=== PATIENT | female | born 1985 | race Caucasian/White ===

== ENCOUNTER 2024-07-01 13:23 | Outpatient (AMB) | payer OTHER, SELFPAY ==
--- NOTE | 2024-07-01 13:25 | A.OFFPC_ITS ---
Vital Signs 07/01/24 13:46 Height 5 ft 3.98 in Weight 154 lb 2 oz BMI 26.5 BP 112/78 Blood Pressure Location Lt brachial Position Sitting Respiration 12 Pulse 60 Pulse Source Pulse Oximeter Pulse Oximetry (%) 99 Oxygen Delivery Method Room Air Intake Visit Reasons: est care Intake Note: New patient visit Professor Of Education Required: No Allergies Sulfa (Sulfonamide Antibiotics) Allergy (Unknown, Verified 07/01/24 13:32) Hives Tobacco use date assessed: 07/01/24 Dental Screening Dental Screen Date: 07/01/24 Did you have a dental visit in the last 12 months?: Yes Did you have a dental problem in the last 6 months where you did not have access to dental care?: No Was dental information given to patient?: Patient has dentist HPI HPI Comments History of Present Illness Details 38 year old female with a past medical h istory of anemia, anxiety, food allergies, Raynauds presenting for follow up In april sliced her right pointer finger on a can top. Wants to have it looked at. She is feeling much better than at her previous visit. 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 ROS CONSTITUTIONAL: Denies weight loss, fever and chills. HEENT: Denies changes in vision and hearing. RESPIRATORY: Denies SOB and cough. CV: Denies palpitations and CP GI: Denies abdominal pain, nausea, vomiting and diarrhea. : Denies dysuria and urinary frequency. MSK: Denies new myalgia and joint pain. SKIN: Denies rash and pruritus. NEUROLOGICAL: Denies headache PSYCHIATRIC: Denies recent changes in mood. PHYSICAL EXAM: GENERAL: Alert and oriented x 3. NAD EYES: EOMI. Anicteric. HENT: Moist mucous membranes. No scleral icterus. No cervical lymphadenopathy. LUNGS: Clear to auscultation bilaterally. CARDIOVASCULAR: Regular rate and rhythm. No murmur. No JVD. ABDOMEN: Soft, non-tender +bs EXTREMITIES: No edema. Non-tender. SKIN: Right second pointer close to full healing. Mobile NEUROLOGIC: No focal neurological deficits. CN II-XII grossly intact PSYCHIATRIC: Cooperative. Appropriate mood and affect [facility] Medical History (Updated 07/04/24 @ 12:31 by Fawn Jones MD) Durga disease History of PCOS Food sensitivity with gastrointestinal symptoms Palpitations Diarrhea Anxiety Anemia Family History (Updated 07/01/24 @ 14:34 by Stephanie Barraza CMA) Paternal Grandfather Cancer Other Asthma Social History (Updated 07/01/24 @ 14:34 by Stephanie Barraza CMA) Housing: House Patient Tobacco Use Status: Never used Tobacco e-Cigarette/Vaping Use: Never Used Second Hand Smoke Exposure: No Use of substances other than those prescribed or required for medical reasons: No service: No Current occupational status: employed 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 1. Little interest or pleasure in doing things: not at all 2. Feeling down, depressed, or hopeless: not at all 3. Trouble falling or staying asleep, or sleeping too much: several days 4. Feeling tired or having little energy: not at all 5. Poor appetite or overeating: not at all 6. Feeling bad about yourself - or that you are a failure or have let yourself or your family down: not at all 7. Trouble concentrating on things, such as reading the newspaper or watching television: not at all 8. Moving or speaking so slowly that other people could have noticed. Or the opposite - being so fidgety or restless that you have been moving around a lot more than usual: not at all 9. Thoughts that you would be better off or of hurting yourself in some way: not at all Total score: 1 Depression Screening Interpretation: Negative (neg) Depression Screening Done: Yes 39234 - PHQ-9 Billing: Yes Source: Developed by Drs. Dean Tyler, Marjorie Graf, Marcell Chiang and colleagues, with an educational linda from [employer]. Thrive Questionnaire Date Thrive assessed: 07/01/24 I am a: Patient What is your living situation today?: I have a steady place to live Within the past 12 months, did the food you bought not last and you didn't have the money to get more?: Never true Within the past 12 months, did you worry whether your food would run out before you got money to buy more?: Never true Do you have trouble paying for medicines?: No Do you have trouble getting transportation to medical appointments?: No Do you have trouble paying your heating and electricity bill?: No Do you have trouble taking care of your child, family member or friend?: No Do you have trouble with day-to-day activities such as bathing, preparing meals, shopping, managing finances, etc.?: No Are you currently unemployed and looking for a job?: No Are you interested in more education?: No Please select the resources that you would like help with: None Currently or been in a relationship where the following occur: No concerns reported THRIVE Score: 0 AUDIT C Alcohol Use Questionnaire (AUDIT-C) 1. How often do you have a drink containing alcohol?: Monthly or less 2. How many drinks containing alcohol do you have on a typical day when you are drinking?: 1 or 2 3. How often do you have six or more drinks on one occasion?: Never Total Score: 1 NAZIA-7 AMB Questionnaire NAZIA-7 Date NAZIA - 7 assessed: 07/01/24 Feeling nervous, anxious, or on edge: 0 = Not at all Not being able to stop or control worryin = Not at all Worrying too much about different things: 0 = Not at all Trouble relaxin = Not at all Being so restless that it is hard to sit still: 0 = Not at all Becoming easily annoyed or irritable: 0 = Not at all Feeling afraid as if something awful might happen: 0 = Not at all Total NAZIA-7 score (0-4 normal; 5-9 mild; 10-14 moderate; 15-21 severe): 0 Source: Developed by Drs. Dean Tyler, Marjorie Graf, Marcell Chiang and colleagues, with an educational linda from [employer]. NAZIA-7 Assessment Billing NAZIA-7 Assessment Tool: NAZIA-7 Assessment 40020 Physical exam (Primary Care) Vital Signs: Last Vital Signs Pulse 60 07/01/24 13:46 Resp 12 07/01/24 13:46 BP 112/78 07/01/24 13:46 Pulse Ox 99 07/01/24 13:46 Oxygen Delivery Method Room Air 07/01/24 13:46 BMI result Body Mass Index 26.5 Tobacco/Smoking Status: Tobacco use Status Tobacco use date assessed 07/01/24 07/01/24 13:52 Patient Tobacco Use Status Never used Tobacco 07/01/24 13:52 e-Cigarette/Vaping Use Never Used 07/01/24 13:52 PHQ-9: PHQ-9 Score PHQ-9: Total score 1 07/04/24 12:12 Depression Screening Interpretation: Negative (neg) Thrive Assessment: Date of Thrive Assessment Date Thrive assessed 07/01/24 07/01/24 14:35 Currently or been in a relationship where the following occur: No concerns reported Coding Level of Care Code Est Pt Level 4 (86147) Diagnoses Anxiety F41.9 Food sensitivity with gastrointestinal symptoms T78.1XXA Additional Codes NAZIA-7 Assessment Billing - NAZIA-7 Assessment Tool: NAZIA-7 Assessment 32943 ([id number]) Assessment & Plan Assessment & Plan (1) Anxiety: Code(s): F41.9 - Anxiety disorder, unspecified Category: Medical Plan: well controlled at present. Using ashwagandha (2) Food sensitivity with gastrointestinal symptoms: Code(s): T78.1XXA - Other adverse food reactions, not elsewhere classified, initial encounter Category: Medical Plan: Doing much better than previously. Continue watching inflammatory foods/triggers
[2024-07-01 13:46] VITALS: BP 112/78; PULSE 60; RESP 12; O2SAT 99; BMI 26.5
== END 2024-07-01 14:01 | disposition home or self-care (01) ==
LOC: HO.HMCFM 13:24
PROVIDERS: Visit Provider Internal Medicine
DX: F41.9 Anxiety disorder, unspecified (principal); T78.1XXA Other adverse food reactions, not elsewhere classified, initial encounter

== ENCOUNTER → 2024-07-01 13:23 | Outpatient (BNVA) | payer OTHER, SELFPAY | PROVIDERS: Visit Provider Internal Medicine | DX: F41.9 Anxiety disorder, unspecified (principal); T78.1XXA Other adverse food reactions, not elsewhere classified, initial encounter | CPT/HCPCS: 96127 ==

== ENCOUNTER 2025-04-28 14:18 | Outpatient (AMB) | payer OTHER, SELFPAY ==
--- NOTE | 2025-04-28 14:19 | MHC.PC.OV ---
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 ROS CONSTITUTIONAL: Denies weight loss, fever and chills. HEENT: Denies changes in vision and hearing. RESPIRATORY: Denies SOB and cough. CV: Denies palpitations and CP GI: Denies abdominal pain, nausea, vomiting and diarrhea. : Denies dysuria and urinary frequency. MSK: Denies new myalgia and joint pain. SKIN: Denies rash and pruritus. NEUROLOGICAL: Denies headache PSYCHIATRIC: Denies recent changes in mood. PHYSICAL EXAM: GENERAL: Alert and oriented x 3. NAD EYES: EOMI. Anicteric. HENT: Moist mucous membranes. No scleral icterus. No cervical lymphadenopathy. LUNGS: Clear to auscultation bilaterally. CARDIOVASCULAR: Regular rate and rhythm. No murmur. No JVD. ABDOMEN: Soft, non-tender +bs EXTREMITIES: No edema. Non-tender. SKIN: Right second pointer close to full healing. Mobile NEUROLOGIC: No focal neurological deficits. CN II-XII grossly intact PSYCHIATRIC: Cooperative. 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 1. Little interest or pleasure in doing things: not at all 2. Feeling down, depressed, or hopeless: not at all 3. Trouble falling or staying asleep, or sleeping too much: not at all 4. Feeling tired or having little energy: not at all 5. Poor appetite or overeating: not at all 6. Feeling bad about yourself - or that you are a failure or have let yourself or your family down: not at all 7. Trouble concentrating on things, such as reading the newspaper or watching television: not at all 8. Moving or speaking so slowly that other people could have noticed. Or the opposite - being so fidgety or restless that you have been moving around a lot more than usual: not at all 9. Thoughts that you would be better off or of hurting yourself in some way: not at all Total score: 0 Depression Screening Interpretation: Negative Depression Screening Done: Yes 00429 - PHQ-9 Billing: Yes Source: Developed by Drs. Dean Tyler, Marjorie Graf, Marcell Chiang and colleagues, with an educational linda from [employer]. Thrive Questionnaire Date Thrive assessed: 04/28/25 I am a: Patient What is your living situation today?: I have a steady place to live Within the past 12 months, did the food you bought not last and you didn't have the money to get more?: Never true Within the past 12 months, did you worry whether your food would run out before you got money to buy more?: Never true Do you have trouble paying for medicines?: No Do you have trouble getting transportation to medical appointments?: No Do you have trouble paying your heating and electricity bill?: No Do you have trouble taking care of your child, family member or friend?: No Do you have trouble with day-to-day activities such as bathing, preparing meals, shopping, managing finances, etc.?: No Are you currently unemployed and looking for a job?: No Are you interested in more education?: No Please select the resources that you would like help with: None Currently or been in a relationship where the following occur: No concerns reported THRIVE Score: 0 AUDIT C Alcohol Use Questionnaire (AUDIT-C) 1. How often do you have a drink containing alcohol?: Monthly or less 2. How many drinks containing alcohol do you have on a typical day when you are drinking?: 1 or 2 3. How often do you have six or more drinks on one occasion?: Never Total Score: 1 NAZIA-7 AMB Questionnaire NAZIA-7 Date NAZIA - 7 assessed: 04/28/25 Feeling nervous, anxious, or on edge: 1 = Several days Not being able to stop or control worryin = Not at all Worrying too much about different things: 0 = Not at all Trouble relaxin = Several days Being so restless that it is hard to sit still: 0 = Not at all Becoming easily annoyed or irritable: 0 = Not at all Feeling afraid as if something awful might happen: 1 = Several days Total NAZIA-7 score (0-4 normal; 5-9 mild; 10-14 moderate; 15-21 severe): 3 Source: Developed by Drs. Dean Tyler, Marjorie Graf, Marcell Chiang and colleagues, with an educational linda from [employer]. NAZIA-7 Assessment Billing NAZIA-7 Assessment Tool: NAZIA-7 Assessment 07365 Physical exam (Primary Care) Vital Signs: Last Vital Signs Pulse 57 04/28/25 14:21 Resp 14 04/28/25 14:21 BP 108/64 04/28/25 14:21 Pulse Ox 98 04/28/25 14:21 Oxygen Delivery Method Room Air 04/28/25 14:21 BMI result Body Mass Index 26.2 Tobacco/Smoking Status: Tobacco use Status Tobacco use date assessed 04/28/25 04/28/25 14:21 Patient Tobacco Use Status Never used Tobacco 04/28/25 14:21 e-Cigarette/Vaping Use Never Used 04/28/25 14:21 PHQ-9: PHQ-9 Score PHQ-9: Total score 0 04/28/25 14:48 Depression Screening Interpretation: Negative Thrive Assessment: Date of Thrive Assessment Date Thrive assessed 04/28/25 04/28/25 14:21 Currently or been in a relationship where the following occur: No concerns reported Coding Level of Care Code Est Pt Prev Care 40-64y(59713) Diagnoses Physical exam Z00.00 Additional Codes NAZIA-7 Assessment Billing - NAZIA-7 Assessment Tool: NAZIA-7 Assessment 10843 ([id number]) PHQ-9 - 81554 - PHQ-9 Billing: Yes ([id number]) Assessment & Plan Assessment & Plan (1) Physical exam: Code(s): Z00.00 - Encounter for general adult medical examination without abnormal findings Plan CPE Interval history reviewed Preventive measures for age discussed Abd discomfort/IBS-levsin refilled. Medications: New hyoscyamine sulfate 0.125 mg PO Q8H 30 tabs 1RF
[2025-04-28 14:21] VITALS: BP 108/64; PULSE 57; RESP 14; O2SAT 98; BMI 26.2
--- OUTSIDE RECORDS SUMMARY | 2025-04-28 14:21 | XMS_ITS | Clinical Summary ---
Author Organization [facility] Address [address] [place] [address] Care Team Providers Care Bmet Name Role Phone Fawn Jones MD Primary Care Provider [phone] Allergies Active Allergy Reactions Criticality Noted Date Comments Sulfa Antibiotics Rash/Dermatitis Low 08/20/2023 Medications clindamycin (CLEOCIN T) 1 % external gel APPLY TOPICALLY TO FACE ONCE TO TWICE A DAY FOR ACNE 3 Active hyoscyamine (ANASPAZ) 0.125 MG Tablet Dispersible dispersible tablet DISSOLVE ONE TABLET BY MOUTH FOUR TIMES A DAY NEEDED FOR SPASM 3 Active Junel FE 10/10 1-20 MG-MCG per tablet 3 Active nortriptyline (PAMELOR) 25 MG capsule Take 25 mg by mouth nightly. 3 Active mometasone (ELOCON) 0.1 % cream Apply topically daily. Apply thin film to affected area. Active ferrous gluconate (FERGON) 324 MG tablet Take 324 mg by mouth every morning with breakfast. Take 2 hours before or 4 hours after acid reducers. Active glucosamine-antwon droitin (COSAMIN DS) 500-400 mg Cap per capsule Take 1 capsule by mouth 3 (three) times a day. Active tretinoin (RETIN-A) 0.025 % cream Apply topically nightly. Active cholecalciferol (CHOLECALCIFEROL ) 25 MCG (1000 UT) tablet Take 1,000 Units by mouth daily. 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 Not on file Not on file Last Filed Vital Signs Vital Sign Reading Time Taken Comments Blood Pressure - - Pulse - - Temperature - - Respiratory Rate - - Oxygen Saturation - - Inhaled Oxygen Concentration - - Weight 64.9 kg (143 lb) 08/20/2023 12:07 PM EST Height 167.6 cm (5' 6 ) 08/20/2023 12:07 PM EST Body Mass Index 23.08 08/20/2023 12:07 PM EST Plan of Treatment Health Maintenance Due Date Last Done Comments Hepatitis C Virus Screening 1983 HIV Screening 1996 DTaP/Tdap/Td Vaccines (1 - Tdap) 2002 Hepatitis B Vaccines (1 of 3 - 19+ 3-dose series) 2002 Pap Smear (Ages 21-65) 2004 Mammogram 2023 COVID-19 Vaccine ( - 2023-2 5 season) 2024 Influenza Vaccine 04/21/2025 HPV Vaccines Aged Out No longer eligi ble based on patient's age to complete this topic Pneumococcal Vaccine: Pediat vicki (0-5 Years) and At-Risk Patients (6 to 49 Years) Aged Out No longer eligible b ased on patient's age to complete this topic Insurance [employer] HMO/POS [facility] Care Teams Bmet Relationship Specialty Start Date End Date Fawn Jones MD [address] [place] [address] [place] [phone] PCP - General Internal Medicine 08/11/23
--- OUTSIDE RECORDS SUMMARY | 2025-04-28 14:21 | XMS_ITS ---
Author Name [facility] Organization Unknown History of Medication Use Medication Directions Dispensed Refills Start Date End Date Stat us cholecalciferol (CHOLECALCIFEROL) 25 MCG (1000 UT) tablet Take 1,000 Units by mouth daily. active ferrous gluconate (FERGON) 324 MG tablet Take 324 mg by mouth every morning with breakfast. Take 2 hours before or 4 hours after acid reducers. active glucosamine-chondroitin (COSAMIN DS) 500-400 mg Cap per capsule Take 1 capsule by mouth 3 (three) times a day. active mometasone (ELOCON) 0.1 % cream Apply topically daily. Apply thin film to affected area. active Allergies Allergen Reaction Severity Comment Documented Date Source Statu s SULFA ANTIBIOTICS RASH/DERMATITIS 08/20/[address] [facility] [address] active Problems Problem Status Onset Date Problem Type Date of Resoluti on Source Allergy to other foods active EncounterDiagnosisAct [facility] Bloating active EncounterDiagnosisAct [facility] Encounters Encounter Type Encounter Reason Primary Diagnosis Location Date Ambulatory Allergy to other foods Allergy to other foods [facility] 08/20/2023 Care Team Organization Name Specialty Phone Email Start Date End Da te [facility] Fawn Jones Primary Care 10/11/2023 12/08/19 25 [facility] FAWN JONES Primary Care 08/20/2023 5 [facility] Fawn Jones Primary Care 08/18/2023 08/20/20 23
== END 2025-04-28 14:56 | disposition home or self-care (01) ==
LOC: HO.HMCFM 14:18
PROVIDERS: Visit Provider Internal Medicine
DX: Z00.00 Encounter for general adult medical examination without abnormal findings (principal)

== ENCOUNTER → 2025-04-28 14:18 | Outpatient (BNVA) | payer OTHER, SELFPAY | PROVIDERS: Visit Provider Internal Medicine | DX: Z00.00 Encounter for general adult medical examination without abnormal findings (principal); F41.1 Generalized anxiety disorder | CPT/HCPCS: 96127 ==